=== PATIENT | female | born 1935 | race Caucasian/White ===

== ENCOUNTER 2018-02-09 11:28 | Day surgery (SDC) | payer MEDICARE, BC ==
[~2018-02-09] VITALS: Ht 157.5 cm; Wt 73.7 kg
[~2018-02-09 11:28] MED LIST: AMOCLA875 PO; ANAS1; APIDRA INSULIN; ASPI81EC PO; BENAML20/5 PO; GLIP5; HYDACE10B PO; HYDACE5 PO; INSULANI; INSULANI SC; LEVSOD100; LEVSOD100 PO; LISI20; METF500; NAPR220; SIMV10; SIMV10 PO; WALKER USE
[2018-02-09] MEDS ORDERED: METF500C (12:04)
== END 2018-02-09 12:50 | disposition home or self-care (01) ==
LOC: ORSCSDS 11:28
PROVIDERS: Internal Medicine Gastroenterology
PROC: 0DJ08ZZ Inspection of Upper Intestinal Tract, Via Natural or Artificial Opening Endoscopic (ICD-10-PCS; principal; 2018-02-09 12:45)
DX: R13.10 Dysphagia, unspecified (principal); K21.9 Gastro-esophageal reflux disease without esophagitis; E11.9 Type 2 diabetes mellitus without complications; E03.9 Hypothyroidism, unspecified; I10 Essential (primary) hypertension; J45.909 Unspecified asthma, uncomplicated; E66.9 Obesity, unspecified; Z68.30 Body mass index [BMI] 30.0-30.9, adult; Z79.4 Long term (current) use of insulin; Z79.899 Other long term (current) drug therapy
CPT/HCPCS: 82947

== ENCOUNTER → 2018-07-27 | Outpatient (CLI) | payer MEDICARE, BC ==
[~2018-07-27] MED LIST changes: +METF500C
== END | disposition home or self-care (01) ==
LOC: LAB SHORT 12:36 → LAB EV 12:36
DX: R82.90 Unspecified abnormal findings in urine (principal)
CPT/HCPCS: 87077; 87086; 87186

== ENCOUNTER → 2018-08-10 | Outpatient (CLI) | payer MEDICARE, BC | END | disposition home or self-care (01) | LOC: LAB EV 12:00 → LAB SHORT 12:00 | DX: R30.0 Dysuria (principal) | CPT/HCPCS: 87077; 87086; 87186 ==

== ENCOUNTER → 2018-08-29 | Outpatient (CLI) | payer MEDICARE, BC | END | disposition home or self-care (01) | LOC: LAB SHORT 16:00 → LAB EV 16:00 | DX: R82.998 Other abnormal findings in urine (principal) | CPT/HCPCS: 87086 ==

== ENCOUNTER → 2019-02-01 | Outpatient (CLI) | payer MEDICARE, BC | END | disposition home or self-care (01) | LOC: LAB SHORT 14:46 → LAB EV 14:46 | DX: N39.0 Urinary tract infection, site not specified (principal) | CPT/HCPCS: 87077; 87086; 87186 ==

== ENCOUNTER → 2019-02-16 | Outpatient (CLI) | payer MEDICARE, BC | END | disposition home or self-care (01) | LOC: LAB EV 14:21 → LAB SHORT 14:21 | DX: N39.0 Urinary tract infection, site not specified (principal) | CPT/HCPCS: 87077; 87086; 87186 ==

== ENCOUNTER 2019-03-18 03:54 | Emergency (ER) | payer MEDICARE, BC ==
[~2019-03-18] VITALS: Ht 160 cm; Wt 72.6 kg
[~2019-03-18 03:54] MED LIST changes: -METF500C; +METF500C PO
[2019-03-18] MEDS ORDERED: Humalog100 UNIT/1 (04:20)
[2019-03-18] MEDS ORDERED: THERA-D2000 UNIT PO (04:20)
[2019-03-18] MEDS ORDERED: COQ-10100 MG PO (04:21)
[2019-03-18] MEDS ORDERED: MAGNESIUM OXID500 MG PO (04:21)
[2019-03-18] MEDS ORDERED: POTA8 PO (04:22)
[2019-03-18] MEDS ORDERED: THERA1 EACH PO (04:22)
== END 2019-03-18 04:51 | disposition home or self-care (01) ==
LOC: ER 03:54
DX: R13.10 Dysphagia, unspecified (principal); I10 Essential (primary) hypertension; E11.9 Type 2 diabetes mellitus without complications; E78.00 Pure hypercholesterolemia, unspecified; Z88.8 Allergy status to other drugs, medicaments and biological substances; Z79.899 Other long term (current) drug therapy; Z79.4 Long term (current) use of insulin
CPT/HCPCS: 99283

== ENCOUNTER → 2020-04-23 | Outpatient (CLI) | payer MEDICARE, BC ==
[~2020-04-23] MED LIST changes: +COQ-10100 MG PO; +Humalog100 UNIT/1; +MAGNESIUM OXID500 MG PO; +POTA8 PO; +THERA-D2000 UNIT PO; +THERA1 EACH PO
== END ==
LOC: LAB SHORT 14:50 → LAB 14:50
DX: R10.30 Lower abdominal pain, unspecified (principal)
CPT/HCPCS: 87077; 87086; 87186

== ENCOUNTER → 2020-04-30 | Outpatient (CLI) | payer MEDICARE, BC ==
[2020-04-30 15:53] LABS: Source, Urine Clean Catch
[2020-04-30 17:38] LABS: Appearance, Urine Clear (Clear); Bilirubin, Urine Neg (Neg); Blood, Urine Neg (Neg); Color, Urine Yellow (P-Yellow); Glucose Qualitative, Urine Neg (Neg); Ketones, Urine Neg (Neg); Leukocyte Esterase, Urine 1+ (Neg); Nitrite, Urine Neg (Neg); Protein, Urine Neg (Neg); Specific Gravity, Urine 1.015 (1.003-1.022); Urobilinogen, Urine NORM (Normal)
[2020-04-30 18:01] LABS: Bacteria Rare /hpf; Red Blood Cells, Urine Not Seen /hpf (0-2); Squamous Epithelial Cells Few /hpf (Few)
== END | disposition home or self-care (01) ==
LOC: LAB 15:52
PROVIDERS: Physician Assistant Medical
DX: R30.0 Dysuria (principal)
CPT/HCPCS: 81001; 87077; 87086; 87186

== ENCOUNTER → 2020-11-17 | Outpatient (CLI) | payer MEDICARE, BC | END | disposition home or self-care (01) | LOC: LAB 14:40 → LAB SHORT 14:40 | DX: R82.998 Other abnormal findings in urine (principal) | CPT/HCPCS: 87077; 87086; 87186 ==

== ENCOUNTER → 2020-12-03 | Outpatient (CLI) | payer MEDICARE, BC | END | disposition home or self-care (01) | LOC: LAB SHORT 09:50 → LAB 09:50 | DX: R30.0 Dysuria (principal) | CPT/HCPCS: 87077; 87086; 87186 ==

== ENCOUNTER → 2020-12-17 | Outpatient (CLI) | payer MEDICARE, BC ==
[2020-12-18 09:31] LABS: Candida species (DNA Probe) Negative (NEGATIVE); G. vaginalis (DNA Probe) Negative (NEGATIVE); T. vaginalis (DNA Probe) Negative (NEGATIVE)
== END | disposition home or self-care (01) ==
LOC: LAB SHORT 12:15 → LAB 12:15
PROVIDERS: Family Medicine
DX: N76.0 Acute vaginitis (principal)
CPT/HCPCS: 87480; 87510; 87660

== ENCOUNTER → 2021-01-29 | Outpatient (CLI) | payer MEDICARE, BC | END | disposition home or self-care (01) | LOC: LAB SHORT 17:04 → LAB 17:04 | DX: R30.0 Dysuria (principal) | CPT/HCPCS: 87077; 87086; 87186 ==

== ENCOUNTER → 2021-02-12 | Outpatient (CLI) | payer MEDICARE, BC | END | disposition home or self-care (01) | LOC: LAB 18:15 → LAB SHORT 18:15 | DX: N39.0 Urinary tract infection, site not specified (principal) | CPT/HCPCS: 87077; 87086; 87186 ==

== ENCOUNTER 2021-08-15 19:32 | Observation (INO) | payer MEDICARE, BC ==
[~2021-08-15] VITALS: Ht 167.6 cm; Wt 69.0 kg
[~2021-08-15 19:32] MED LIST changes: +Amlodipine-Ben1 EACH PO; -BENAML20/5 PO; -LEVSOD100 PO; +LEVSOD75 PO; +MULVITA PO; -SIMV10 PO; -THERA1 EACH PO; +ZOCOR20 MG PO
[2021-08-16 00:12] LABS: BASOPHILS ABSOLUTE AUTO 0.06 K/mm3 (0.00-0.23); BASOPHILS PERCENT AUTO 0 % (0-2); EOSINOPHILS ABSOLUTE AUTO 0.23 K/mm3 (0.00-0.68); EOSINOPHILS PERCENT AUTO 1 % (0-6); IMMATURE GRAN PERCENT AUTO 1 % (0-1); LYMPHOCYTES ABSOLUTE AUTO 1.96 K/mm3 (0.84-5.20); LYMPHOCYTES PERCENT AUTO 11 % (21-46); MONOCYTES ABSOLUTE AUTO 1.29 K/mm3 (0.16-1.47); MONOCYTES PERCENT AUTO 8 % (4-13); Mean Corpuscular HGB Conc 33.3 g/dL (31.5-36.5); Mean Corpuscular Volume 90 fL (80-100); Mean Platelet Volume 10.6 fL (9.1-12.4); NEUTROPHILS ABSOLUTE AUTO 13.67 K/mm3 (1.96-9.15); NEUTROPHILS PERCENT AUTO 79 % (41-73); Platelet Count 301 K/mm3 (150-400); RDW Standard Deviation 43.3 fL (35.1-46.3); Red Blood Cell Count 4.33 M/mm3 (3.80-5.20); White Blood Cell Count 17.31 K/mm3 (4.00-11.30)
[2021-08-16 00:36] LABS: Alanine Aminotransfer (ALT/SGP 20 U/L (12-78); Albumin, Blood 3.9 g/dL (3.4-5.0); Albumin/Globulin Ratio 0.9 (0.8-1.8); Alk Phos 53 U/L (50-136); Anion Gap 6 mmol/L (6-16); Aspartate Aminotrans (AST/SGOT 15 U/L (12-37); Bilirubin, Total 0.3 mg/dL (0.1-1.0); Blood Urea Nitrogen 15 mg/dL (8-24); Bun/Creatinine Ratio 29.2 (12.0-20.0); CO2, Blood 28 mmol/L (21-32); Calcium, Blood 9.1 mg/dL (8.5-10.1); Chloride, Blood 109 mmol/L (98-108); Creatinine, Blood 0.51 mg/dL (0.40-1.00); Globulin, Blood 4.2 g/dL (2.2-4.0); Glomerular Filtration Rate >60 (60-); Glucose, Blood 219 mg/dL (70-99); Potassium, Blood 3.7 mmol/L (3.5-5.5); Sodium, Blood 143 mmol/L (136-145); Total Protein, Blood 8.1 g/dL (6.4-8.2)
--- NOTE | 2021-08-16 01:16 | NUR ---
08/16/21 0115 Barry Thurston History, Chart, Medications and Allergies reviewed before start of procedure.EKG MONITORED DURING PROCEDURE.MONITOR INTACT WITH CONTINUOUS PULSE OXIMETRY AND INTERMITTENT BP.O2 VIA N/C INTACT THROUGHOUT SEDATION/PROCEDURE.Bite Block Placed, WILL REMOVE AFTER PROCEDURE.See Anesthesia record/.
[2021-08-16] MEDS ORDERED: INSULANI SC (02:07)
[2021-08-16] MEDS ORDERED: ESTRADIOL42.5 GM VAG (02:08)
[2021-08-16] MEDS ORDERED: HUMALOG KW100 UNIT/1 SC (02:30)
--- NOTE | 2021-08-16 03:23 | NUR ---
ADMIT NOTE 85 YR OLD FEMALE ADMITTED TO FLOOR FROM THE ED WITH DX OF FOOD IMPACTION. ED RN REPORTED PT HAD TRIED TO EAT SOME CHICKEN AND IT BECAME STUCK IN HER THROAT, IT REQUIRED THE MD TO USE ANESTHESIA WHILE DISLODGING IT. ABLE TO SWALLOW, NO LONGER HAVING DYSPHAGIA. RESPS EVEN. ALERT AND ORIENTED. SCHEDULED TO BE DISCHARGED IN THE AM, BUT TO HAVE PTS FRIEND COME TO PICK HER UP TO TAKE HOME SHE WAS LETHARGIC. ORIENTED TO USE OF CALL LIGHT. CALL LIGHT IN REACH.
--- NOTE | 2021-08-16 05:04 | NUR ---
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 LETHARGIC SO WAS ADMITTED TO FLOOR. HAS BEEN RESTING QUIETLY WITHOUT NOTED DISTRESS WHILE HERE. CALL LIGHT IN REACH. AM NURSE/STAFF TO FOLLOW THROUGH WITH HAVING SOMEONE ELSE DRIVE HER HOME WHEN DISCHARGED.
[2021-08-16] MEDS ORDERED: PANT40 PO (10:56)
--- NOTE | 2021-08-16 12:12 | NUR ---
PT IS A&O, PLEASANT AND CO-OP WITH CARE. UP TO BTHRM WITH SBA. DR RICKETTS IN EARLY TO SEE PT. DIET ORDER CHANGED. PT ABLE TO TOLERATE CL DIET AND NEW DIET ORDER; PUREE VERY WELL. DR RICKETTS UPDATED ON PT'S TOLERANCE TO DIET AND THEN CLEAR FOR D/C. DR RICKETTS BACK TO SEE PT AND DISCUSS PLAN OF CARE. PT TO F/U WITH GI OUTPT WITHIN 2 WEEKS WELL PRIMARY. PT'S DAUGHTER HERE EARLY TO SEE PT AND TAKE HER HOME. D/C INSTRUCTIONS REVIEWED WITH PT AND DAUGHTER; VERBALIZED UNDERSTANDING. MEDS FAXED TO [facility] PER PT REQUEST. PT ASSISTED OUT TO DAUGHTERS CAR VIA W/C.
--- NOTE | 2021-08-16 14:56 | NUR ---
PT WAS PLEASANT IN THE BEGINNING OF SHIFT. PT WAS SEEN BY DR. ALVARADO. PT STATED THAT SHE WAS DOING WELL AND READY TO GO HOME. DR. ALVARADO ORDERD FR PT TO BE EVALUATED WITH PUREE DIET. PT TOLERATED PUREE DIET WELL. PT GOT A SHOWER AFTER BREAKFAST. PT GOT ORDERS TO BE DISCHARGED HOME. PT IV WAS REMOVED WITHOUT ANY COMPLICATIONS. PT DAUGHTER WAS PRESENT THROUGHOUT SHIFT AND TRANSPORTED PT HOME.
== END 2021-08-16 11:15 | disposition home or self-care (01) ==
LOC: ER 19:32 → MEDS 19:33 → ENPENDDIS 08-16 09:36 → MEDS 08-16 11:15
PROVIDERS: Emergency Medicine; Student in an Organized Health Care Education/Training Program; ADMIT Family Medicine
PROC: 0DB38ZX Excision of Lower Esophagus, Via Natural or Artificial Opening Endoscopic, Diagnostic (ICD-10-PCS; principal; 2021-08-16 00:30)
PROC: 0D758ZZ Dilation of Esophagus, Via Natural or Artificial Opening Endoscopic (ICD-10-PCS; principal; 2021-08-16 00:30)
DX: T18.128A Food in esophagus causing other injury, initial encounter (principal); K20.90 Esophagitis, unspecified without bleeding; K22.2 Esophageal obstruction; E11.9 Type 2 diabetes mellitus without complications; E78.5 Hyperlipidemia, unspecified; D72.829 Elevated white blood cell count, unspecified; K44.9 Diaphragmatic hernia without obstruction or gangrene; Z79.4 Long term (current) use of insulin; Z79.899 Other long term (current) drug therapy; Z88.8 Allergy status to other drugs, medicaments and biological substances; X58.XXXA Exposure to other specified factors, initial encounter
CPT/HCPCS: 70360; 80053; 82947; 85025; C1726; C9113; J1610; J1815; J2001; J2370; J2704; J7030; J7120

== ENCOUNTER 2021-09-26 13:09 | Emergency (ER) | payer MEDICARE, BC ==
[~2021-09-26] VITALS: Ht 157.5 cm; Wt 68.0 kg
[~2021-09-26 13:09] MED LIST changes: +ESTRADIOL42.5 GM VAG; +HUMALOG KW100 UNIT/1 SC; +PANT40 PO
[2021-09-26] MEDS ORDERED: LIDO700A20 TOP (16:02)
== END 2021-09-26 16:14 | disposition home or self-care (01) ==
LOC: ER 13:09
DX: S32.028A Other fracture of second lumbar vertebra, initial encounter for closed fracture (principal); E11.9 Type 2 diabetes mellitus without complications; I10 Essential (primary) hypertension; W18.09XA Striking against other object with subsequent fall, initial encounter; Z79.899 Other long term (current) drug therapy; Z79.84 Long term (current) use of oral hypoglycemic drugs; Z79.4 Long term (current) use of insulin
CPT/HCPCS: 72100; A9270

== ENCOUNTER → 2022-03-31 | Outpatient (CLI) | payer MEDICARE, BC ==
[~2022-03-31] MED LIST changes: +LIDO700A20 TOP
== END | disposition home or self-care (01) ==
LOC: LAB SHORT 15:45 → LAB 15:45
DX: N39.41 Urge incontinence (principal)
CPT/HCPCS: 87077; 87086; 87147; 87186